=== PATIENT | female | born 1950 | race Caucasian/White ===

== ENCOUNTER 2016-07-30 14:40 | Emergency (ER) | payer MEDICARE, SELFPAY ==
[2016-07-30 14:57] VITALS: RESP 18; O2SAT 98; BMI 26.5
--- NOTE | 2016-07-30 16:28 | CT ---
PROCEDURE: CT HEAD WITHOUT CONTRAST. HISTORY: head injury, hit head on radiator COMPARISON: None available. TECHNIQUE: Axial computed tomography images were obtained through the head/brain without intravenous contrast. Radiation dose: Total exam DLP = 685.48 mGy-cm. This CT exam was performed using one or more of the following dose reduction techniques: Automated exposure control, adjustment of the mA and/or kV according to patient size, and/or use of iterative reconstruction technique. FINDINGS: HEMORRHAGE: No intracranial hemorrhage. BRAIN: No mass effect or edema. Mild age-appropriate cerebral atrophy. There is mild periventricular white matter lucency consistent with microvascular ischemic change. VENTRICLES: Unremarkable. No hydrocephalus. CALVARIUM: No evidence of calvarial fracture. High right parietal scalp hematoma. PARANASAL SINUSES: Unremarkable as visualized. No significant inflammatory changes. MASTOID AIR CELLS: Unremarkable as visualized. No inflammatory changes. OTHER FINDINGS: None. IMPRESSION: No intracranial hemorrhage. High right parietal scalp hematoma. Age-appropriate involutional changes.
--- NOTE | 2016-07-30 16:34 | C.PDOC ---
History Of Present Illness 66 year old patient with a past medical history of hypertension and arthritis, presents to the ED for evaluation s/p head injury just prior to arrival. Patient states she was standing on a bed and cleaning, when she slipped, fell, and hit her head on the radiator. Patient denies any other injuries, loss of consciousness, dizziness, sensory changes, extremity weakness, nausea/vomiting, visual change, chest pain, SOB. Patient also denies use of blood thinners. - HPI Time Seen by Provider: 07/30/16 14:57 Chief Complaint (Nursing): Trauma History Per: Patient History/Exam Limitations: no limitations Onset/Duration Of Symptoms: Mins (just prior to arrival) Severity: Mild - Fall Fall:Prior To Injury: Tripped Past Medical History Reviewed: Historical Data, Nursing Documentation, Vital Signs Vital Signs: Last Vital Signs Temp 98.2 F 07/30/16 16:46 Pulse 78 07/30/16 16:46 Resp 18 07/30/16 16:46 BP 148/75 07/30/16 16:46 Pulse Ox 98 07/30/16 18:40 - Medical History PMH: Arthritis, HTN Surgical History: Cholecystectomy (2011) - Timely Procedures CYSTOSCOPY NEC (11/21/13) TRANSURETH BLADD BIOPSY (11/21/13) Family History: States: No Known Family Hx - Social History Hx Alcohol Use: No Hx Substance Use: No - Immunization History Hx Tetanus Toxoid Vaccination: Yes Hx Influenza Vaccination: Yes Hx Pneumococcal Vaccination: No Review Of Systems Except As Marked, All Systems Reviewed And Found Negative. Constitutional: Negative for: Fever, Chills Eyes: Negative for: Vision Change Cardiovascular: Negative for: Chest Pain, Palpitations Respiratory: Negative for: Cough, Shortness of Breath Gastrointestinal: Negative for: Nausea, Vomiting, Abdominal Pain, Diarrhea Neurological: Positive for: Other ((+)head injury (-)loss of consciousness). Negative for: Weakness, Numbness, Confusion, Seizures, Altered Mental Status, Headache, Dizziness Physical Exam - Physical Exam Appears: Non-toxic, No Acute Distress, Other (comfortable) Skin: Warm, Dry Head: Normacephalic, No Laceration, Other (contusion to the right parietal scalp , with mild tenderness to palpation) Eye(s): bilateral: Normal Inspection ((-) racoon eyes), PERRL, EOMI Ear(s): Bilateral: Normal ((-) Horne sign ) Nose: Normal, No Deformity, No Tenderness Oral Mucosa: Moist Throat: Normal Neck: Normal ROM, Supple Cardiovascular: Rhythm Regular Respiratory: Normal Breath Sounds, No Accessory Muscle Use, No Rales, No Rhonchi , No Wheezing Gastrointestinal/Abdominal: Normal Exam, Bowel Sounds, Soft, No Tenderness Back: Normal Inspection, No CVA Tenderness Extremity: Normal ROM Neurological/Psych: Oriented x3, Normal Speech, Normal Cognition, Normal Cranial Nerves, No Cerebellar Signs, Normal Motor, Normal Sensation Gait: Steady ED Course And Treatment O2 Sat by Pulse Oximetry: 98 (room air ) Pulse Ox Interpretation: Normal - CT Scan/US Head CT Other Rad Studies (CT/US): Read By Radiologist (Gurpreet Glass MD), Radiology Report Reviewed CT/US Interpretation: PROCEDURE: CT HEAD WITHOUT CONTRAST. HISTORY: head injury, hit head on radiator. COMPARISON: None available. TECHNIQUE: Axial computed tomography images were obtained through the head/brain without intravenous contrast. Radiation dose: Total exam DLP = 685.48 mGy-cm. This CT exam was performed using one or more of the following dose reduction techniques: Automated exposure control, adjustment of the mA and/or kV according to patient size, and/or use of iterative reconstruction technique. FINDINGS: HEMORRHAGE: No intracranial hemorrhage. BRAIN: No mass effect or edema. Mild age-appropriate cerebral atrophy. There is mild periventricular white matter lucency consistent with microvascular ischemic change. VENTRICLES : Unremarkable. No hydrocephalus. CALVARIUM: No evidence of calvarial fracture. High right parietal scalp hematoma. PARANASAL SINUSES: Unremarkable as visualized. No significant inflammatory changes. MASTOID AIR CELLS: Unremarkable as visualized. No inflammatory changes. OTHER FINDINGS: None. IMPRESSION: No intracranial hemorrhage. High right parietal scalp hematoma. Age-appropriate involutional changes. Progress Note: CT head ordered and reviewed. Patient given PO tylenol. Reevaluation Time: 16:40 Reassessment Condition: Improved (Patient reassessed, is resting comfortably, in no current pain/distress. CT head (-) for acute findings other than scalp hematoma. She was given Rx for Naprosyn, and was instructed to follow up with PMD/clinic in 1-2 days. She understands she should return to ED if she develops any concerning symptoms.) Disposition Counseled Patient/Family Regarding: Studies Performed, Diagnosis, Need For Followup, Rx Given - Disposition Referrals: Chato Kang MD [Primary Care Provider] - Disposition: HOME/ ROUTINE Disposition Time: 16:40 Condition: STABLE Prescriptions: Naproxen [Naprosyn Tab] 375 mg PO BID PRN #15 tab PRN Reason: pain Instructions: Head Injury (ED), Contusion in Adults (DC) Print Language: [place] - POA Present On Arrival: Falls Or Trauma - Clinical Impression Clinical Impression: Contusion, Closed head injury - Scribe Statement The provider has reviewed the documentation as recorded by the Scribnabeel Eng Provider Attestation: All medical record entries made by the Aliciaibe were at my direction and personally dictated by me. I have reviewed the chart and agree that the record accurately reflects my personal performance of the history, physical exam, medical decision making, and the department course for this patient. I have also personally directed, reviewed, and agree with the discharge instructions and disposition.
[2016-07-30 16:46] VITALS: BP 148/75; PULSE 78; TEMP 98.2
== END 2016-07-30 16:47 | disposition home or self-care (01) ==
LOC: SUPCPDRO 14:40 → C.ER 14:40
DX: S00.03XA Contusion of scalp, initial encounter (principal); W01.198A Fall on same level from slipping, tripping and stumbling with subsequent striking against other object, initial encounter; Y93.E9 Activity, other interior property and clothing maintenance